=== PATIENT | male | born 1970 | race African-American/Black ===

== ENCOUNTER 2017-04-11 11:19 | Emergency (ER) | payer OTHER ==
[2017-04-11] MEDS ORDERED: Ondansetron HCl/PF 4 MG/2 ML Vial ONE (11:33)
[2017-04-11] MEDS ORDERED: Ibuprofen 800 MG TAB ONE (11:52)
[2017-04-11] MEDS ORDERED: HYDROcodone/Acetaminophen 5/325 mg Tablet ONE (11:52)
[2017-04-11 12:07] LABS: #Basophils 0.1 thou/uL (0.0-0.2); #Lymphocytes 2.2 thou/uL (1.20-3.40); #Monocytes 0.8 thou/uL (0.11-0.59); #Neutrophils 6.9 thou/uL (1.40-6.50); %Basophils 0.8 % (0.0-1.0); %Eosinophils 0.3 % (0.0-10.0); %Lymphocytes 21.7 % (21.0-51.0); %Monocytes 7.9 % (0.0-10.0); Hematocrit 42.5 % (42.0-52.0); Mean Platelet Volume 7.6 fL (7.4-10.4); Red Blood Cell (RBC) Count 4.33 mill/uL (4.70-6.10)
[2017-04-11] MEDS ORDERED: Bupivacaine 0.5% 10 ML VIAL ONE (12:08)
[2017-04-11 12:26] LABS: ALT (SGPT) 19 U/L (8-55); AST (SGOT) 33 U/L (5-34); Alkaline Phosphatase 72 U/L (40-150); Anion Gap 14 mmol/L (10-20); BUN (Urea Nitrogen) 9 mg/dL (8.9-20.6); Bilirubin, Total 0.5 mg/dL (0.2-1.2); Calc. Creatinine Clearance 0 mL/min (70-130); Calcium 9.1 mg/dL (7.8-10.44); Carbon Dioxide 21 mmol/L (22-29); Chloride 104 mmol/L (98-107); Estimated GFR-MDRD Greater than 90; Protein, Total 8.1 g/dL (6.0-8.3)
== END 2017-04-11 15:50 | disposition home or self-care (01) ==
LOC: ERS 11:19
DX: K12.2 Cellulitis and abscess of mouth (principal); K04.7 Periapical abscess without sinus; F41.9 Anxiety disorder, unspecified; F32.9 Major depressive disorder, single episode, unspecified; F17.210 Nicotine dependence, cigarettes, uncomplicated; K21.9 Gastro-esophageal reflux disease without esophagitis
CPT/HCPCS: 41800; 80053; 85025; 85652; 86140; 87070; 87205; 96374; J2405; J3490

== ENCOUNTER 2017-06-17 01:46 | Emergency (ER) | payer OTHER ==
[2017-06-17] MEDS ORDERED: Ketorolac Tromethamine 30 MG/ML VIAL ONE (02:54)
== END 2017-06-17 03:06 | disposition home or self-care (01) ==
LOC: ERS 01:46
DX: K02.9 Dental caries, unspecified (principal); K21.9 Gastro-esophageal reflux disease without esophagitis; F41.9 Anxiety disorder, unspecified; F32.9 Major depressive disorder, single episode, unspecified; F17.210 Nicotine dependence, cigarettes, uncomplicated
CPT/HCPCS: 96372; J1885

== ENCOUNTER 2017-07-16 15:18 | Emergency (ER) | payer OTHER ==
[2017-07-16] MEDS ORDERED: Lidocaine 1% w/Epinephrine 1:100K 20 ML VIAL ONE (17:15)
[2017-07-16] MEDS ORDERED: Acetaminophen 500 MG TAB ONE (17:17)
[2017-07-16] MEDS ORDERED: Ibuprofen 800 MG TAB ONE (17:17)
== END 2017-07-16 18:02 | disposition home or self-care (01) ==
LOC: ERS 15:18
DX: K02.9 Dental caries, unspecified (principal); M70.22 Olecranon bursitis, left elbow
CPT/HCPCS: 23931; 99283; J2001

== ENCOUNTER 2018-07-28 19:30 | Emergency (ER) | payer OTHER ==
[2018-07-28] MEDS ORDERED: Lidocaine 1% w/Epinephrine 1:100K 20 ML VIAL ONE (19:53)
== END 2018-07-28 20:33 | disposition home or self-care (01) ==
LOC: ERS 19:30
DX: L02.412 Cutaneous abscess of left axilla (principal); K21.9 Gastro-esophageal reflux disease without esophagitis; F41.9 Anxiety disorder, unspecified; F32.9 Major depressive disorder, single episode, unspecified; F17.210 Nicotine dependence, cigarettes, uncomplicated
CPT/HCPCS: 10061; J2001

== ENCOUNTER 2018-08-03 08:22 | Emergency (ER) | payer OTHER | END 2018-08-03 08:55 | disposition home or self-care (01) | LOC: ERS 08:22 | DX: Z48.817 Encounter for surgical aftercare following surgery on the skin and subcutaneous tissue (principal); K21.9 Gastro-esophageal reflux disease without esophagitis; F41.9 Anxiety disorder, unspecified; F32.9 Major depressive disorder, single episode, unspecified; F17.210 Nicotine dependence, cigarettes, uncomplicated | CPT/HCPCS: 99282 ==

== ENCOUNTER 2019-03-19 13:04 | Emergency (ER) | payer OTHER ==
[2019-03-19] MEDS ORDERED: Acetaminophen 500 MG TAB ONE (14:50)
--- NOTE | 2019-03-19 15:05 | CT ---
Exam: CT brain PROVIDED CLINICAL HISTORY: Neck abscess COMPARISON: 11/08/2014 FINDINGS: The ventricular system is normal in size and morphology. No evidence for intracranial hemorrhage or mass effect. Postoperative changes involving the occipital skull and cerebellum are redemonstrated, similar to prior examination. The extracranial soft tissues and osseous structures demonstrate an oth erwise unremarkable CT appearance. IMPRESSION: No evidence for intracranial hemorrhage or mass effect.
[2019-03-19] MEDS ORDERED: Bacitracin 1 PK ONE (15:22)
== END 2019-03-19 15:39 | disposition home or self-care (01) ==
LOC: ERS 13:04
DX: L02.11 Cutaneous abscess of neck (principal); R51 Headache; K21.9 Gastro-esophageal reflux disease without esophagitis; F41.9 Anxiety disorder, unspecified; F32.9 Major depressive disorder, single episode, unspecified; F17.210 Nicotine dependence, cigarettes, uncomplicated
CPT/HCPCS: 70450

== ENCOUNTER 2019-05-22 13:22 | Outpatient (CLI) | payer OTHER ==
[2019-05-22 15:01] LABS: #Basophils 0.1 thou/uL (0.0-0.2); #Lymphocytes 2.6 thou/uL (1.20-3.40); #Monocytes 0.6 thou/uL (0.11-0.59); #Neutrophils 5.5 thou/uL (1.40-6.50); %Eosinophils 0.2 % (0.0-10.0); %Lymphocytes 29.7 % (21.0-51.0); %Monocytes 7.2 % (0.0-10.0); Hemoglobin 14.9 g/dL (14.0-18.0); Mean Corpuscular HGB CONC 33.4 g/dL (32.0-36.0); Mean Corpuscular Hemoglobin 31.7 pg (27.0-31.0); Mean Corpuscular Volume 94.9 fL (78.0-98.0); Mean Platelet Volume 7.7 fL (7.4-10.4); Platelet Count 257 thou/uL (130-400); RBC Distribution Width 13.4 % (11.5-14.5); Red Blood Cell (RBC) Count 4.68 mill/uL (4.70-6.10); White Blood Cell (WBC) Count 8.8 thou/uL (4.8-10.8)
[2019-05-22 15:33] LABS: Anion Gap 11 mmol/L (10-20); BUN (Urea Nitrogen) 6 mg/dL (8.9-20.6); Calc. Creatinine Clearance 0 mL/min (70-130); Calcium 9.3 mg/dL (7.8-10.44); Carbon Dioxide 27 mmol/L (22-29); Chloride 103 mmol/L (98-107); Estimated GFR-MDRD Greater than 90; Glucose 69 mg/dL (70-105); Sodium 137 mmol/L (136-145)
== END 2019-05-22 13:23 | disposition home or self-care (01) ==
LOC: LABBT 13:22
PROVIDERS: ATTEND Surgery
DX: Z01.818 Encounter for other preprocedural examination (principal); L98.9 Disorder of the skin and subcutaneous tissue, unspecified
CPT/HCPCS: 80048; 85025

== ENCOUNTER 2019-05-24 09:08 | Day surgery (SDC) | payer OTHER ==
[2019-05-22 13:28] VITALS: BMI 20.3
[2019-05-24] MEDS ORDERED: Fentanyl 100 MCG/2 ML VIAL ONE (09:30)
[2019-05-24] MEDS ORDERED: Midazolam HCl 2 mg/2 ml Vial ONE (09:30)
[2019-05-24] MEDS ORDERED: Bupivacaine 0.25% HCL 30 ML VIAL ONE (10:22)
[2019-05-24] MEDS ORDERED: PROPOFOL 200 MG/20 ML VIAL ONE (10:25)
[2019-05-24] MEDS ORDERED: Ondansetron PF 4 MG/2 ML Vial ONE (10:25)
[2019-05-24] MEDS ORDERED: Lidocaine 1% PF 5 ML VIAL ONE (10:25)
[2019-05-24] MEDS ORDERED: Ketorolac Tromethamine 30 MG/ML VIAL ONE (10:25)
[2019-05-24] MEDS ORDERED: Rocuronium Bromide 10 MG/ML (10ML VIAL) ONE (10:25)
[2019-05-24] MEDS ORDERED: Glycopyrrolate 0.2 MG/ML 5 ML SYRINGE ONE (10:25)
[2019-05-24] MEDS ORDERED: Bacitracin Zinc Ointment 30 gm TUBE ONE (10:44)
--- NOTE | 2019-05-29 22:53 | PDOC.OP ---
Operative Note - Operative Note Operative Note: PROCEDURE: Excision of posterior scalp lesion SURGEON: Vicki Perry M.D. DATE: 05/24/2019 PREOPERATIVE DIAGNOSIS: Posterior scalp lesion POSTOPERATIVE DIAGNOSIS: Posterior scalp lesion HISTORY: Patient with a posterior scalp lesion which enlarged rapidly. This was quite painful and irritating to the patient. A punch biopsy was negative for malignancy. With proper hygiene, the lesion has slightly decreased in size but the patient would still like to have it excised for diagnostic and symptomatic purposes. PROCEDURE IN DETAIL: After informed consent was obtained and appropriate preoperative antibiotics administered the patient was taken to the operating room he was placed in supine [place] position and general endotracheal anesthesia was administered. He was then placed in the prone position with appropriate padding and support of his extremities. He was prepped and draped in a standard sterile fashion and the margins of the skin lesion marked on the skin. Local anesthesia was infused circumferentially and an elliptical incision was made incorporating the entire dermal lesion into the incision. Dissection was carried down to the subcutaneous tissues and the lesion was marked for orientation for pathology and passed from the field. It measured 3 cm in largest diameter. Hemostasis was obtained and the subcutaneous tissues reapproximated with 3 absorbable sutures. The skin was then closed with interrupted sutures and antibiotic and sterile dressings were placed. The patient was then placed in the supine position and extubated. He was taken to recovery in good condition. Estimated blood loss was minimal. There were no complications. Specimen is posterior scalp lesion.
== END 2019-05-24 13:29 | disposition home or self-care (01) ==
LOC: SDC 09:08
PROVIDERS: ATTEND Surgery
PROC: 0HB0XZZ Excision of Scalp Skin, External Approach (ICD-10-PCS; principal; 2019-05-24)
DX: L98.9 Disorder of the skin and subcutaneous tissue, unspecified (principal); F17.210 Nicotine dependence, cigarettes, uncomplicated; M19.90 Unspecified osteoarthritis, unspecified site; G89.29 Other chronic pain; Z91.041 Radiographic dye allergy status
CPT/HCPCS: 88305; J0690; J1885; J2001; J2250; J2405; J2704; J3010; S0020

== ENCOUNTER 2019-06-30 11:08 | Emergency (ER) | payer OTHER ==
--- NOTE | 2019-06-30 12:00 | CT ---
CT Brain WO Con History: Injury Comparison: CT brain March 19, 2019 Findings: Postsurgical changes of the posterior fossa. Postsurgical changes of the thrombus. Interval chronic in nature. No acute hemorrhage or infarct. No midline shift or mass effect. Calvarium is intact. Paranasal sinuses and mastoids are clear. Impression: Chronic findings. No acute intracranial abnormality.
--- NOTE | 2019-06-30 12:03 | CT ---
CT Cervical Spine WO Con History: Injury Comparison: CT cervical spine 2015 Findings: The occipital condyles are intact. The odontoid process is intact. Multilevel degenerative disc space height loss is circumferential disc osteophyte complexes. No acute traumatic facet joint widening. There is ankylosis of the right C2/C3 facet joints. Emphysematous changes in the lung apices. Impression: No acute fracture or malalignment of the cervical spine.
== END 2019-06-30 13:00 | disposition home or self-care (01) ==
LOC: ERS 11:08
DX: S00.03XA Contusion of scalp, initial encounter (principal); F10.129 Alcohol abuse with intoxication, unspecified; K21.9 Gastro-esophageal reflux disease without esophagitis; F41.9 Anxiety disorder, unspecified; F32.9 Major depressive disorder, single episode, unspecified; F17.210 Nicotine dependence, cigarettes, uncomplicated; Y04.0XXA Assault by unarmed brawl or fight, initial encounter
CPT/HCPCS: 70450; 72125

== ENCOUNTER 2019-09-25 12:22 | Outpatient (CLI) | payer OTHER ==
--- NOTE | 2019-09-25 13:34 | ULT ---
EXAM: CAROTID ULTRASOUND WITH DOPPLER 09/25/19 HISTORY: Syncope. COMPARISON: None. TECHNIQUE: Doran scale, color flow, Doppler imaging with spectral waveform analysis performed in the carotid and vertebral arteries. FINDINGS: RIGHT CAROTID: No significant atherosclerotic disease. Peak systolic velocity of the common carotid artery is 143.2 cm/s. Peak systolic velocity of the inte rnal carotid artery is 90.0 cm/s. Systolic ICA to CCA ratio is 0.63. LEFT CAROTID: No significant atherosclerotic disease. Peak systolic velocity of the common carotid artery is 96.8 cm/s. Peak systolic velocity of the inter nal carotid artery is 83.70 cm/s. Systolic ICA to CCA ratio is 0.86. Antegrade flow in both vertebral arteries. IMPRESSION: No sonographic evidence of significant atherosclerotic disease. However, the peak systolic velocity o f the proximal right common carotid artery is 143.2 cm/s suggesting moderate (50-69%) stenosis. Talia r interrogation with CT angiogram of the neck is recommended. POS: OFF
== END 2019-09-25 12:23 | disposition home or self-care (01) ==
LOC: ULT 12:22
PROVIDERS: ATTEND Family Medicine
DX: R55 Syncope and collapse (principal); I07.1 Rheumatic tricuspid insufficiency
CPT/HCPCS: 93306; 93880

== ENCOUNTER 2020-07-28 13:44 | Emergency (ER) | payer OTHER | END 2020-07-28 14:36 | disposition home or self-care (01) | LOC: ERS 13:44 | DX: K02.9 Dental caries, unspecified (principal); R22.0 Localized swelling, mass and lump, head; K21.9 Gastro-esophageal reflux disease without esophagitis; F17.210 Nicotine dependence, cigarettes, uncomplicated | CPT/HCPCS: 99283 ==

== ENCOUNTER 2022-03-30 18:47 | Emergency (ER) | payer OTHER ==
[2022-03-30] MEDS ORDERED: Acetaminophen 500 MG TAB ONE (19:33)
[2022-03-30] MEDS ORDERED: Ketorolac Tromethamine 30 MG/ML VIAL ONE (19:33)
== END 2022-03-30 20:56 | disposition home or self-care (01) ==
LOC: ERS 18:47
DX: S09.90XA Unspecified injury of head, initial encounter (principal); M54.50 Low back pain, unspecified; K21.9 Gastro-esophageal reflux disease without esophagitis; G40.409 Other generalized epilepsy and epileptic syndromes, not intractable, without status epilepticus; F17.210 Nicotine dependence, cigarettes, uncomplicated; W18.2XXA Fall in (into) shower or empty bathtub, initial encounter; Y92.002 Bathroom of unspecified non-institutional (private) residence as the place of occurrence of the external cause; Z85.841 Personal history of malignant neoplasm of brain
CPT/HCPCS: 70450; 72131; 96372; J1885

== ENCOUNTER 2023-06-30 08:28 | Outpatient (CLI) | payer OTHER | END 2023-06-30 08:29 | disposition home or self-care (01) | LOC: CT 08:28 | PROVIDERS: ATTEND Student in an Organized Health Care Education/Training Program | DX: Z12.2 Encounter for screening for malignant neoplasm of respiratory organs (principal); F17.210 Nicotine dependence, cigarettes, uncomplicated; R91.1 Solitary pulmonary nodule | CPT/HCPCS: 71271 ==

== ENCOUNTER 2023-07-12 12:33 | Outpatient (CLI) | payer OTHER | END 2023-07-12 12:34 | disposition home or self-care (01) | LOC: BICULT 12:33 | PROVIDERS: ATTEND Physician Assistant Medical | DX: B19.10 Unspecified viral hepatitis B without hepatic coma (principal); R10.13 Epigastric pain; R19.5 Other fecal abnormalities; R19.8 Other specified symptoms and signs involving the digestive system and abdomen; R11.2 Nausea with vomiting, unspecified; R68.81 Early satiety; R16.0 Hepatomegaly, not elsewhere classified | CPT/HCPCS: 76705 ==

== ENCOUNTER 2023-08-23 08:24 | Outpatient (CLI) | payer OTHER | END 2023-08-23 08:25 | disposition home or self-care (01) | LOC: BICCT 08:24 | PROVIDERS: ATTEND Physician Assistant Medical | DX: R10.13 Epigastric pain (principal); B19.10 Unspecified viral hepatitis B without hepatic coma; K21.9 Gastro-esophageal reflux disease without esophagitis; R11.2 Nausea with vomiting, unspecified; R16.0 Hepatomegaly, not elsewhere classified; R19.8 Other specified symptoms and signs involving the digestive system and abdomen; R39.198 Other difficulties with micturition; K76.0 Fatty (change of) liver, not elsewhere classified | CPT/HCPCS: 74177; 82565 ==

== ENCOUNTER 2025-04-29 10:00 | Outpatient (CLI) | payer MEDICAID, OTHER | END 2025-04-29 10:01 | disposition home or self-care (01) | LOC: BICCT 10:00 | PROVIDERS: ATTEND Family Medicine | DX: Z12.2 Encounter for screening for malignant neoplasm of respiratory organs (principal); F17.210 Nicotine dependence, cigarettes, uncomplicated | CPT/HCPCS: 71271 ==